=== PATIENT | male | born 1990 | race Caucasian/White ===

== ENCOUNTER 2022-09-12 19:16 | Emergency (ER) | payer OTHER ==
[2022-09-12] MEDS ORDERED: SODIUM CHLORIDE 0.9% 1,000 ML IV STA (19:26)
[2022-09-12] MEDS ORDERED: ASPIRIN 325 MG TAB PO STA (19:38)
[2022-09-12 19:39] VITALS: RESP 18; TEMP 98.2
--- NOTE | 2022-09-12 20:03 | ED ---
Chest Pain HPI - General Chief Complaint: Chest Pain Stated Complaint: Chest Discomfort Time Seen by Provider: 09/12/22 19:26 Source: patient Mode of arrival: EMS Limitations: no limitations - History of Present Illness Initial Comments: Patient is a 32-year-old presenting from [facility] for chest pain. Patient states chest pain has been occurring intermittently since 4 PM today. Reports episodes of substernal chest pain that last 2-15 minutes. The pain is nonradiating, nonexertional. Patient states he has never had this pain before. He is not having pain currently. It is associated with shortness of breath, lightheadedness and right arm tingling. He denies dizziness, abdominal pain, nausea, vomiting. Denies fever, chills, cough. Denies history of cardiac disease. Patient unsure about family history of cardiac disease. He reports smoking one pack a day for the past 22 years. 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 Admits to IV drug use. Reports last use in late July. - Related Data Home Medications Medication Instructions Recorded Confirmed Acetaminophen [Tylenol] 650 mg PO TID PRN 09/12/22 09/12/22 Calcium, Magnesium, Zinc, With D3 1 dose PO TID PRN 09/12/22 09/12/22 Chlorpheniramine Maleate 4 mg PO Q4H PRN 09/12/22 09/12/22 [Chlor-Trimeton] Escitalopram [Lexapro] 10 mg PO DAILY@0600 09/12/22 09/12/22 Gabapentin 300 mg PO TID@0600,1100,1600 09/12/22 09/12/22 Ibuprofen [Motrin Ib] 600 mg PO Q6H PRN 09/12/22 09/12/22 Mag Hydrox/Aluminum Hyd/Simeth 30 ml PO Q4H PRN 09/12/22 09/12/22 [Mylanta Maximum Strength Liq] Multivitamins, Thera [Multivitamin 1 tab PO DAILY PRN 09/12/22 09/12/22 (formulary)] Naltrexone HCl [Revia] 50 mg PO DAILY@0600 09/12/22 09/12/22 Nicotine 21Mg/24Hr Patch [Habitrol] 1 patch TRANSDERM DAILY@0615 09/12/22 09/12/22 Thiamine [Vitamin B-1] 100 mg PO DAILY PRN 09/12/22 09/12/22 busPIRone HCl [Buspar] 10 mg PO TID 09/12/22 09/12/22 guaiFENesin [guaiFENesin Oral 200 mg PO Q4H PRN MDD 800MG 09/12/22 09/12/22 Solution] ondansetron HCL [Zofran] 8 mg PO Q6H PRN 09/12/22 09/12/22 traZODone HCL [Desyrel] 100 mg PO HS@2000 09/12/22 09/12/22 Allergies Allergy/AdvReac Type Severity Reaction Status Date / Time amoxicillin Allergy Unknown Verified 09/12/22 20:31 Childhood Review of Systems ROS Statement: Those systems with pertinent positive or pertinent negative responses have been documented in the HPI. ROS Other: All systems not noted in ROS Statement are negative. EKG Findings - EKG Comments: EKG Findings:: EKG taken at 19:46. Sinus rhythm, no ST or T-wave abnormalities. Ventricular rate 71. CA interval 184. QRS duration 90. QTC 374 General Exam Limitations: no limitations General appearance: alert, in no apparent distress Head exam: Present: atraumatic, normocephalic, normal inspection Respiratory exam: Present: normal lung sounds bilaterally. Absent: respiratory distress, wheezes, rales, rhonchi, stridor, chest wall tenderness Cardiovascular Exam: Present: regular rate, normal rhythm, normal heart sounds. Absent: systolic murmur, diastolic murmur, rubs, gallop, clicks GI/Abdominal exam: Present: soft, normal bowel sounds. Absent: distended, tenderness, guarding, rebound, rigid Extremities exam: Present: normal inspection, full ROM, normal capillary refill. Absent: tenderness, pedal edema, joint swelling, calf tenderness Neurological exam: Present: alert, oriented X3, CN II-XII intact Psychiatric exam: Present: normal affect, normal mood Course Vital Signs 09/12/22 09/12/22 19:35 22:54 Temperature 98.2 F Pulse Rate 77 68 Respiratory 18 18 Rate Blood Pressure 151/87 122/63 O2 Sat by Pulse 96 98 Oximetry - Reevaluation(s) Reevaluation #1: Patient resting comfortably in bed. No chest pain or shortness of breath. 09/12/22 22:09 Chest Pain MDM - MDM This is a 32-year-old male presenting with chest pain. Patient well-appearing and in no apparent distress. No chest pain currently. Vital stable. EKG shows sinus rhythm with no ST segment or T-wave abnormality. Laboratory studies unremarkable. Troponin is within normal limits. Chest x-ray negative for acute process. Patient given aspirin. He did not have any further episodes of chest pain in the emergency department. Repeat troponin is negative. Patient will be discharged back to his facility. Return parameters discussed. Dr. Pace is my attending. Disposition Clinical Impression: Chest pain, Shortness of breath, Tingling of right upper extremity, Lightheaded ness, IV drug user Disposition: HOME SELF-CARE Condition: Good Instructions (If sedation given, give patient instructions): Chest Pain (ED) Additional Instructions: Please follow-up with primary care provider in one to 2 days. Return to the emergency department experience new, concerning, or worsening symptoms. Is patient prescribed a controlled substance at d/c from ED?: No Referrals: None,Stated [Primary Care Provider] - 1-2 days Time of Disposition: 23:33
[2022-09-12 20:06] LABS: Basophils # (A) 0.1 k/uL (0-0.2); Basophils % (A) 1 %; Eosinophils # (A) 0.4 k/uL (0-0.7); Eosinophils % (A) 4 %; HCT 42.1 % (39.0-53.0); HGB 14.7 gm/dL (13.0-17.5); Lymphocytes % (A) 43 %; MCH 30.7 pg (25.0-35.0); MCHC 34.9 g/dL (31.0-37.0); Mean Platelet Volume 6.6; Monocytes # (A) 0.5 k/uL (0-1.0); Monocytes % (A) 6 %; Neutrophils # (A) 4.2 k/uL (1.3-7.7); Neutrophils % (A) 45 %; Platelet Count 333 k/uL (150-450); RBC 4.79 m/uL (4.30-5.90); RDW 12.7 % (11.5-15.5); WBC 9.3 k/uL (3.8-10.6)
[2022-09-12 20:20] LABS: INR 0.9 (<1.2); Partial Thromboplastin Time 23.3 sec (22.0-30.0); Prothrombin Time 9.8 sec (9.0-12.0)
[2022-09-12 20:25] LABS: ALT 40 U/L (4-49); AST 31 U/L (17-59); African American GFR (CKD) >90 (>60 ml/min/1.73 sqM); Albumin 4.6 g/dL (3.5-5.0); Alkaline Phosphatase 86 U/L (38-126); Anion Gap 12 mmol/L; Blood Urea Nitrogen 21 mg/dL (9-20); Calcium 9.2 mg/dL (8.4-10.2); Carbon Dioxide 23 mmol/L (22-30); Chloride 101 mmol/L (98-107); Glucose 92 mg/dL (74-99); Magnesium 2.2 mg/dL (1.6-2.3); Non-African American GFR(CKD) >90 (>60 ml/min/1.73 sqM); Potassium 4.5 mmol/L (3.5-5.1); Sodium 136 mmol/L (137-145); Total Bilirubin 0.2 mg/dL (0.2-1.3); Total Protein 7.3 g/dL (6.3-8.2)
--- NOTE | 2022-09-12 20:59 | XR ---
EXAMINATION: XR chest 2V DATE AND TIME: 09/12/2022 8:34 PM CLINICAL INDICATION: 32 M with chest pain TECHNIQUE: Departmental protocol COMPARISON: None FINDINGS: The lungs are clear. The pleural spaces are negative. The cardiac silhouette is not enlarged. The remainder of the mediastinal silhouette is unremarkable. The skeletal structures and soft tissues are negative for acute findings. IMPRESSION: NO ACUTE PROCESS.
[2022-09-12 22:56] VITALS: BP 122/63; PULSE 68
== END 2022-09-13 | disposition home or self-care (01) ==
LOC: EC 19:16
DX: R07.2 Precordial pain (principal); R06.02 Shortness of breath; R20.2 Paresthesia of skin; R42 Dizziness and giddiness; F19.90 Other psychoactive substance use, unspecified, uncomplicated; Z88.1 Allergy status to other antibiotic agents; F17.210 Nicotine dependence, cigarettes, uncomplicated; Z79.899 Other long term (current) drug therapy
CPT/HCPCS: 36415; 71046; 80053; 83735; 84484; 85025; 85610; 85730; 93005; 96360; 99285